=== PATIENT | female | born 1960 ===

== ENCOUNTER 2023-08-16 13:47 | Day surgery (SDC) | payer OTHER, SELFPAY ==
[2023-08-16] MEDS: LACTATED RINGERS 1,000 ML 120 ML IV (14:36)
[2023-08-16 14:49] VITALS: BP 151/74; PULSE 61; RESP 18; TEMP 36.8; O2SAT 99; BMI 23.3
--- NOTE | 2023-08-16 15:19 | PM.HP.1 ---
History of Present Illness History of Present Illness Date Patient Seen: 08/16/23 Time Patient Seen: 15:20 Chief complaint: SDC Narrative: 62-year-old female per report for colon cancer screening. She indicates she had a negative exam some 12 years ago REPLACED BY [facility] Social History household members: spouse Smoking Status: Never smoker alcohol intake: former Meds Home Medications and Allergies Home Medications Medication Instructions Recorded Confirmed Type adalimumab 40 mg/0.8 mL 40 mg SUBCUT Q2W 08/16/23 08/16/23 History subcutaneous pen kit (Humira Pen) atorvastatin 20 mg tablet 20 mg PO DAILY 08/16/23 08/16/23 History folic acid 1 mg tablet 1 mg PO BID 08/16/23 08/16/23 History losartan 25 mg tablet 25 mg PO DAILY 08/16/23 08/16/23 History Allergies Allergy/AdvReac Type Severity Reaction Status Date / Time meloxicam [From Mobic] AdvReac Verified 08/16/23 14:41 Review of Systems Review of Systems ROS: Yes All systems reviewed with the patient and are negative except as otherwise documented Exam Vital Signs (past 8 hours): - 08/16/23 14:49 Temperature 98.2 F Pulse Rate 61 Respiratory Rate 18 Blood Pressure 151/74 H Pulse Oximetry 99 Oxygen Delivery Method Room Air Oxygen Delivery Method Room Air Const General: cooperative HENMT Head: normal to inspection Eyes General: appearance normal, both eyes and all related structures Neck Neck: normal visual inspection Chest Chest: normal inspection of the chest Resp Effort & Inspection: normal respiratory effort Cardio Rate: regular rate GI Inspection: normal to inspection Skin General: no rashes or lesions noted Neuro General: patient alert and patient awake Extrem General: normal to inspection and no pedal edema Psych Appearance: grossly normal Assessment & Plan Assessment & Plan narrative: 62-year-old female here for colon cancer screening. Colonoscopy is pursued today.
--- NOTE | 2023-08-16 15:20 | PM.PREOP ---
Pre-operative Note Interval Note History & Physical reviewed/Exam performed by Physician: Yes Changes to H&P: No ASA Class (for procedural sedation): II
[2023-08-16 16:14] VITALS: BP 140/69; PULSE 68; RESP 14; TEMP 36.8; O2SAT 100
--- NOTE | 2023-08-16 16:14 | PM.OP.COLON ---
Operative Date/Time/Diagnoses Time of procedure: 16:14 Pre-op diagnosis: Colon cancer screening Post-op diagnosis: same Procedure & Clinicians Study performed: Colonoscopy Same procedure as scheduled: Yes Indications: Colon cancer screening Surgeon: Luis Kam Procedure Notes SCOAP/Timeout: Done Procedure in detail: After the risks and benefits were explained, written and verbal informed consent was obtained. The patient was brought into the procedure room and placed into the left lateral decubitus position. Please see anesthesia notes for sedation details. Digital rectal examination was accomplished. The scope was introduced into the patient and advanced under direct visualization to the cecum as identified by the appendiceal orifice and ileocecal valve. The scope was slowly withdrawn to carefully examine the mucosa for any defects or lesions. Comprehensive imaging was accomplished throughout the rectum including the dentate line. The colon was decompressed, the scope was then removed from the patient who tolerated the procedure well. Pediatric colonoscope Bowel prep adequate Scope withdrawal time: 6 minutes Sedation minutes: 11 Specimen(s): none sent Complications: none Impression: No significant mucosal findings throughout. This was a visually unremarkable exam. Endoscopic diagnosis Visually unremarkable colonoscopy Post-procedure Plan for aftercare: Repeat colonoscopy for screening purposes in 10 years; sooner should symptoms warrant an earlier exam. Disposition: PACU
[2023-08-16 16:19] VITALS: BP 168/76; PULSE 69; RESP 15; O2SAT 100
[2023-08-16 16:24] VITALS: BP 191/89; PULSE 62; RESP 12; O2SAT 100
[2023-08-16 16:30] VITALS: BP 181/88; PULSE 57; RESP 15; O2SAT 100
== END 2023-08-16 16:50 | disposition home or self-care (01) ==
PROVIDERS: PCP Nurse Practitioner Family; Referring Provider Internal Medicine Gastroenterology; Visit Provider Internal Medicine Gastroenterology
PROC: 0DJD8ZZ Inspection of Lower Intestinal Tract, Via Natural or Artificial Opening Endoscopic (ICD-10-PCS; CPT 45378; principal; 2023-08-16 15:00)
DX: Z12.11 Encounter for screening for malignant neoplasm of colon (principal)
CPT/HCPCS: 45378; J2704